=== PATIENT | male | born 1975 | race Caucasian/White ===

== ENCOUNTER 2019-07-24 12:20 | Emergency (ER) | payer MEDICARE, OTHER ==
[~2019-07-24] VITALS: Ht 177.8 cm; Wt 68.0 kg
[~2019-07-24 12:20] MED LIST: BACL10 PO; BUPR150ER PO; Bactrim Ds Tab1 EACH PO; DEXL60CA3 PO; DOCU100 PO; MIRT15 PO; OXYC10TA19 PO; PROM25 PO; Vyvanse30 MG PO
[2019-07-24] MEDS ORDERED: Bactrim Ds Tab1 EACH PO (13:00)
== END 2019-07-24 13:09 | disposition home or self-care (01) ==
LOC: ER 12:20
DX: K13.0 Diseases of lips (principal); N17.9 Acute kidney failure, unspecified; Z99.2 Dependence on renal dialysis; F17.210 Nicotine dependence, cigarettes, uncomplicated; Z88.0 Allergy status to penicillin; Z79.899 Other long term (current) drug therapy
CPT/HCPCS: 99282; A9270-GY